=== PATIENT | female | born 1950 | race Caucasian/White ===

== ENCOUNTER → 2025-03-05 14:36 | Outpatient (REF) | payer OTHER, SELFPAY | LOC: RAD 14:36 | PROVIDERS: ATTENDING PHYSICIAN Nurse Practitioner Family; FAMILY PHYSICIAN Family Medicine | DX: R05.3 Chronic cough (principal) | CPT/HCPCS: 71046 ==

== ENCOUNTER → 2025-07-15 09:58 | Outpatient (REF) | payer OTHER, SELFPAY | LOC: HWRAD 09:58 | PROVIDERS: ATTENDING PHYSICIAN Orthopaedic Surgery; FAMILY PHYSICIAN Family Medicine | DX: M75.42 Impingement syndrome of left shoulder (principal) | CPT/HCPCS: 73200 ==